=== PATIENT | male | born 1980 | race African-American/Black ===

== ENCOUNTER 2016-12-12 05:39 | Emergency (ER) | payer OTHER ==
[~2016-12-12] VITALS: Ht 177.8 cm; Wt 65.5 kg
[~2016-12-12 05:39] MED LIST: MEDROL DOSEPAK4 MG PO; PYRIDIUM200 MG PO
[2016-12-12 06:33] LABS: HEMATOCRIT 40.4 % (38.0-50.0); MCH 31.5 PG (29.0-34.0); MCHC 32.7 G/DL (30.0-36.0); MCV 96.4 FL (86-99); MEAN PLAT.VOLUME 9.5 uM^3 (9.0-12.4); PLATELET COUNT 360 K/uL (156-360); RBC DIS.WIDTH-CV 12.3 % (11.8-14.6); RBC DIS.WIDTH-SD 43.8 % (39-53); RED BLOOD COUNT 4.19 M/uL (4.00-5.50); WHITE BLOOD COUNT 9.8 K/uL (4.1-10.2)
[2016-12-12 06:43] LABS: CHLORIDE 109 mEq/L (99-109); POTASSIUM 3.5 mEq/L (3.7-5.4); SODIUM 142 mEq/L (136-147)
[2016-12-12 06:45] LABS: GLUCOSE 107 mg/dL (70-99)
[2016-12-12 06:47] LABS: ANION GAP 18 MEQ/L (2-14)
[2016-12-12 06:48] LABS: SERUM ETHYL ALCOHOL < 10 mg/dL
[2016-12-12 06:49] LABS: GFR ESTIMATE (CALCULATED) > 59 mL/min/
[2016-12-12 06:51] LABS: UREA NITROGEN (BUN) 13 mg/dL (9-23)
[2016-12-12 06:52] LABS: SALICYLATE < 5.0 MG/DL (15-30)
[2016-12-12 09:13] LABS: AMPHETAMINE NEGATIVE (500 ng/mL); BARBITURATES NEGATIVE (200 ng/mL); BENZODIAZEPINES NEGATIVE (150 ng/mL); COCAINE PRESUMPTIVE POSITIVE (150 ng/mL); INTERNAL CONTROLS VALID? YES; METHADONE NEGATIVE (200 ng/mL); METHAMPHETAMINE NEGATIVE (500 ng/mL); OPIATES (MORPHINE) NEGATIVE (100 ng/mL); OXYCODONE NEGATIVE (100 ng/mL); PHENCYCLIDINE PRESUMPTIVE POSITIVE (25 ng/mL); PROPOXYPHENE NEGATIVE (300 ng/mL); THC CANNABINOIDS PRESUMPTIVE POSITIVE (50 ng/mL); TRICYCLIC ANTIDEPRESSANTS NEGATIVE (300 ng/mL)
[2016-12-12 09:14] LABS: ADD MEDTOX COMMENT Y
[2016-12-12 10:42] VITALS: BP 135/98
== END 2016-12-12 10:44 | disposition home or self-care (01) ==
LOC: EME 05:39
PROVIDERS: Emergency Medicine
DX: F19.10 Other psychoactive substance abuse, uncomplicated (principal); F68.8 Other specified disorders of adult personality and behavior; F17.200 Nicotine dependence, unspecified, uncomplicated
CPT/HCPCS: 71010; 80048; 84999; 85027; 93005; 99281; 99285; G0480; J1630; J2250; J7030

== ENCOUNTER 2016-12-14 19:40 | Emergency (ER) | payer OTHER ==
[~2016-12-14] VITALS: Ht 170.2 cm; Wt 62.0 kg
[2016-12-14 21:48] VITALS: BP 131/99
== END 2016-12-14 21:48 | disposition home or self-care (01) ==
LOC: EME 19:40
PROC: 0HQFXZZ Repair Right Hand Skin, External Approach (ICD-10-PCS; principal; 2016-12-14)
DX: S61.216A Laceration without foreign body of right little finger without damage to nail, initial encounter (principal); W26.0XXA Contact with knife, initial encounter
CPT/HCPCS: 99281; 99283; S0020

== ENCOUNTER 2017-03-01 12:16 | Emergency (ER) | payer OTHER ==
[~2017-03-01] VITALS: Ht 172.7 cm; Wt 60.0 kg
[2017-03-01 13:01] VITALS: BP 120/81
== END 2017-03-01 13:27 | disposition left against medical advice (07) ==
LOC: EME 12:16
DX: T65.891A Toxic effect of other specified substances, accidental (unintentional), initial encounter (principal); F17.200 Nicotine dependence, unspecified, uncomplicated
CPT/HCPCS: 80053; 85027; 99281; 99283; G0480

== ENCOUNTER 2017-03-10 18:48 | Emergency (ER) | payer OTHER ==
[~2017-03-10] VITALS: Ht 170.2 cm; Wt 62.6 kg
[2017-03-10 19:53] LABS: HEMATOCRIT 36.9 % (38.0-50.0); MCH 31.5 PG (29.0-34.0); MCHC 33.1 G/DL (30.0-36.0); MCV 95.3 FL (86-99); MEAN PLAT.VOLUME 9.2 uM^3 (9.0-12.4); PLATELET COUNT 307 K/uL (156-360); RBC DIS.WIDTH-CV 12.6 % (11.8-14.6); RBC DIS.WIDTH-SD 44.1 % (39-53); RED BLOOD COUNT 3.87 M/uL (4.00-5.50); WHITE BLOOD COUNT 10.5 K/uL (4.1-10.2)
[2017-03-10 20:02] LABS: CHLORIDE 110 mEq/L (99-109); POTASSIUM 3.6 mEq/L (3.7-5.4); SODIUM 146 mEq/L (136-147)
[2017-03-10 20:04] LABS: GLUCOSE 99 mg/dL (70-99)
[2017-03-10 20:05] LABS: ANION GAP 9 MEQ/L (2-14)
[2017-03-10 20:06] LABS: TOTAL BILIRUBIN 0.5 mg/dL (0.0-1.0)
[2017-03-10 20:07] LABS: ALKALINE PHOSPHATASE 65 IU/L (3-129); SERUM ETHYL ALCOHOL < 10 mg/dL
[2017-03-10 20:08] LABS: GFR ESTIMATE (CALCULATED) > 59 mL/min/
[2017-03-10 20:09] LABS: UREA NITROGEN (BUN) 10 mg/dL (9-23)
[2017-03-10 21:05] VITALS: BP 157/110
== END 2017-03-10 21:05 | disposition home or self-care (01) ==
LOC: EME → EDBD 18:48 → EME 18:48
PROVIDERS: Emergency Medicine
PROC: 0HQ1XZZ Repair Face Skin, External Approach (ICD-10-PCS; principal; 2017-03-10)
DX: S01.111A Laceration without foreign body of right eyelid and periocular area, initial encounter (principal); S02.2XXA Fracture of nasal bones, initial encounter for closed fracture; S60.221A Contusion of right hand, initial encounter; Y00.XXXA Assault by blunt object, initial encounter; F17.200 Nicotine dependence, unspecified, uncomplicated
CPT/HCPCS: 70450; 70486; 73130; 80053; 85027; 99281; 99284; G0480

== ENCOUNTER 2017-03-27 14:56 | Emergency (ER) | payer OTHER ==
[~2017-03-27] VITALS: Ht 170.2 cm; Wt 68.1 kg
== END 2017-03-27 15:42 | disposition home or self-care (01) ==
LOC: EME 14:56
DX: S01.111D Laceration without foreign body of right eyelid and periocular area, subsequent encounter (principal); Z72.0 Tobacco use
CPT/HCPCS: 99281; 99283

== ENCOUNTER 2017-05-09 16:11 | Emergency (ER) | payer OTHER ==
[~2017-05-09] VITALS: Ht 170.2 cm; Wt 46.8 kg
[2017-05-09 17:44] LABS: BASOPHIL COUNT 0.1 K/uL (0-0.1); EOSINOPHIL (%) 0.5 % (0-5); EOSINOPHIL COUNT 0.1 K/uL (0-0.3); HEMATOCRIT 43.4 % (38.0-50.0); IMMATURE GRANULOCYTE (%) 0.3 % (0.0-0.7); LYMPHOCYTE COUNT 1.9 K/uL (1.0-2.8); MCH 31.6 PG (29.0-34.0); MCHC 33.9 G/DL (30.0-36.0); MCV 93.3 FL (86-99); MEAN PLAT.VOLUME 9.5 uM^3 (9.0-12.4); MONOCYTE COUNT 0.8 K/uL (0-0.8); NEUTROPHIL (%) 74.1 % (45-76); PLATELET COUNT 297 K/uL (156-360); RBC DIS.WIDTH-CV 12.6 % (11.8-14.6); RBC DIS.WIDTH-SD 43.7 % (39-53); RED BLOOD COUNT 4.65 M/uL (4.00-5.50); WHITE BLOOD COUNT 10.8 K/uL (4.1-10.2)
[2017-05-09 17:56] LABS: CHLORIDE 105 mEq/L (99-109); POTASSIUM 3.5 mEq/L (3.7-5.4); SODIUM 142 mEq/L (136-147)
[2017-05-09 17:58] LABS: GLUCOSE 110 mg/dL (70-99)
[2017-05-09 17:59] LABS: ANION GAP 15 MEQ/L (2-14)
[2017-05-09 18:01] LABS: SERUM ETHYL ALCOHOL < 10 mg/dL
[2017-05-09 18:02] LABS: GFR ESTIMATE (CALCULATED) > 59 mL/min/
[2017-05-09 18:03] LABS: UREA NITROGEN (BUN) 16 mg/dL (9-23)
[2017-05-09 18:47] LABS: AMPHETAMINE NEGATIVE (500 ng/mL); BARBITURATES NEGATIVE (200 ng/mL); BENZODIAZEPINES NEGATIVE (150 ng/mL); COCAINE PRESUMPTIVE POSITIVE (150 ng/mL); INTERNAL CONTROLS VALID? YES; METHADONE NEGATIVE (200 ng/mL); METHAMPHETAMINE NEGATIVE (500 ng/mL); OPIATES (MORPHINE) NEGATIVE (100 ng/mL); OXYCODONE NEGATIVE (100 ng/mL); PHENCYCLIDINE PRESUMPTIVE POSITIVE (25 ng/mL); PROPOXYPHENE NEGATIVE (300 ng/mL); THC CANNABINOIDS PRESUMPTIVE POSITIVE (50 ng/mL); TRICYCLIC ANTIDEPRESSANTS NEGATIVE (300 ng/mL)
[2017-05-09 18:48] LABS: ADD MEDTOX COMMENT Y
[2017-05-09 19:24] VITALS: BP 118/84
[2017-05-09 20:12] LABS: TROP-I INTERPRETATION NEGATIVE; TROPONIN-I < 0.01 ng/mL (0.0-0.30)
== END 2017-05-09 19:25 | disposition home or self-care (01) ==
LOC: EME 16:11
PROVIDERS: Emergency Medicine
DX: F12.10 Cannabis abuse, uncomplicated (principal); F14.10 Cocaine abuse, uncomplicated; F17.200 Nicotine dependence, unspecified, uncomplicated; Z59.0 Homelessness
CPT/HCPCS: 80048; 84484; 84999; 85025; 93005; 99281; 99283; G0480

== ENCOUNTER 2017-05-09 22:09 | Emergency (ER) | payer OTHER ==
[~2017-05-09] VITALS: Ht 170.2 cm; Wt 65.9 kg
[2017-05-10 00:13] LABS: TROP-I INTERPRETATION NEGATIVE; TROPONIN-I < 0.01 ng/mL (0.0-0.30)
[2017-05-10 01:06] VITALS: BP 127/94
== END 2017-05-10 01:06 | disposition home or self-care (01) ==
LOC: EME 22:09
PROVIDERS: Emergency Medicine
DX: R55 Syncope and collapse (principal); F12.10 Cannabis abuse, uncomplicated; F16.10 Hallucinogen abuse, uncomplicated; F14.10 Cocaine abuse, uncomplicated; R00.1 Bradycardia, unspecified; F17.200 Nicotine dependence, unspecified, uncomplicated
CPT/HCPCS: 84484; 99281; 99283

== ENCOUNTER 2017-05-18 17:58 | Emergency (ER) | payer OTHER | END 2017-05-18 18:09 | disposition left against medical advice (07) | LOC: EME 17:58 | DX: M54.9 Dorsalgia, unspecified (principal); Z53.21 Procedure and treatment not carried out due to patient leaving prior to being seen by health care provider ==

== ENCOUNTER 2017-08-13 18:54 | Emergency (ER) | payer OTHER ==
[~2017-08-13] VITALS: Ht 170.2 cm; Wt 74.8 kg
[2017-08-13 19:37] VITALS: BP 166/98
== END 2017-08-13 19:41 | disposition home or self-care (01) ==
LOC: EME 18:54
DX: F19.129 Other psychoactive substance abuse with intoxication, unspecified (principal); F17.200 Nicotine dependence, unspecified, uncomplicated
CPT/HCPCS: 99281; 99283

== ENCOUNTER 2017-12-23 05:11 | Emergency (ER) | payer OTHER ==
[~2017-12-23] VITALS: Ht 172.7 cm; Wt 67.7 kg
[2017-12-23 06:40] VITALS: BP 126/97
== END 2017-12-23 06:53 | disposition home or self-care (01) ==
LOC: EME → EDBD 05:11 → EME 06:53
DX: S80.811A Abrasion, right lower leg, initial encounter (principal); S40.211A Abrasion of right shoulder, initial encounter; S20.319A Abrasion of unspecified front wall of thorax, initial encounter; S80.812A Abrasion, left lower leg, initial encounter; Y09 Assault by unspecified means; F17.200 Nicotine dependence, unspecified, uncomplicated
CPT/HCPCS: 99281; 99283

== ENCOUNTER 2018-01-16 03:10 | Emergency (ER) | payer OTHER ==
[~2018-01-16] VITALS: Ht 177.8 cm; Wt 66.2 kg
[2018-01-16 06:20] LABS: BASOPHIL (%) 0.6 % (0-1); BASOPHIL COUNT 0.1 K/uL (0-0.1); EOSINOPHIL (%) 1.9 % (0-5); EOSINOPHIL COUNT 0.2 K/uL (0-0.3); HEMATOCRIT 37.1 % (38.0-50.0); HEMOGLOBIN 12.2 G/DL (12.5-16.6); IMMATURE GRANULOCYTE (%) 0.2 % (0.0-0.7); LYMPHOCYTE (%) 23.2 % (15-42); LYMPHOCYTE COUNT 1.9 K/uL (1.0-2.8); MCH 31.6 PG (29.0-34.0); MCHC 32.9 G/DL (30.0-36.0); MCV 96.1 FL (86-99); MONOCYTE (%) 4.7 % (3-12); MONOCYTE COUNT 0.4 K/uL (0-0.8); NEUTROPHIL (%) 69.4 % (45-76); NEUTROPHIL COUNT 5.8 K/uL (1.8-6.4); PLATELET COUNT 334 K/uL (156-360); RBC DIS.WIDTH-CV 13.5 % (11.8-14.6); RBC DIS.WIDTH-SD 47.8 % (39-53); RED BLOOD COUNT 3.86 M/uL (4.00-5.50); WHITE BLOOD COUNT 8.4 K/uL (4.1-10.2)
[2018-01-16 06:26] LABS: INTER. NORMALIZED RATIO 1.1
[2018-01-16 06:29] LABS: PTT 29.9 SEC (25-37)
[2018-01-16 06:31] LABS: CHLORIDE 107 mEq/L (99-109); POTASSIUM 3.6 mEq/L (3.7-5.4); SODIUM 142 mEq/L (136-147)
[2018-01-16 06:34] LABS: GLUCOSE 107 mg/dL (70-99); TOTAL PROTEIN 6.8 g/dL (6.4-8.3)
[2018-01-16 06:35] LABS: TOTAL BILIRUBIN 0.5 mg/dL (0.0-1.0)
[2018-01-16 06:37] LABS: CREATININE 0.9 mg/dL (0.6-1.3); GFR ESTIMATE (CALCULATED) > 59 mL/min/ (58.99-99999); SERUM ETHYL ALCOHOL < 10 mg/dL
[2018-01-16 06:38] LABS: ALKALINE PHOSPHATASE 70 IU/L (3-129)
[2018-01-16 06:39] LABS: AST (GOT) 20 IU/L (2-34); DIRECT BILIRUBIN 0.2 mg/dL (0.0-0.3); UREA NITROGEN (BUN) 9 mg/dL (9-23)
[2018-01-16 06:41] LABS: ACETAMINOPHEN (TYLENOL) < 10 mcg/mL (10-30); ALT (GPT) 17 IU/L (3-49); SALICYLATE < 5.0 MG/DL (15-30)
[2018-01-16 06:42] LABS: LIPASE 23 U/L (1.0-51.0)
[2018-01-16 07:56] VITALS: BP 112/87
== END 2018-01-16 07:59 | disposition home or self-care (01) ==
LOC: EME → EDBD 03:10 → EME 07:59
PROVIDERS: Emergency Medicine
DX: R41.82 Altered mental status, unspecified (principal); Z87.898 Personal history of other specified conditions; F17.200 Nicotine dependence, unspecified, uncomplicated
CPT/HCPCS: 70450; 80048; 80076; 81003; 83690; 85025; 85610; 85730; 99281; 99284; G0480; J1630

== ENCOUNTER 2018-01-16 16:30 | Emergency (ER) | payer OTHER ==
[~2018-01-16] VITALS: Ht 170.2 cm; Wt 64.6 kg
[2018-01-16 17:15] LABS: HEMATOCRIT 39.1 % (38.0-50.0); HEMOGLOBIN 12.8 G/DL (12.5-16.6); MCH 31.3 PG (29.0-34.0); MCHC 32.7 G/DL (30.0-36.0); MCV 95.6 FL (86-99); PLATELET COUNT 376 K/uL (156-360); RBC DIS.WIDTH-CV 13.3 % (11.8-14.6); RBC DIS.WIDTH-SD 47.5 % (39-53); RED BLOOD COUNT 4.09 M/uL (4.00-5.50); WHITE BLOOD COUNT 10.4 K/uL (4.1-10.2)
[2018-01-16 17:21] LABS: CHLORIDE 106 mEq/L (99-109); POTASSIUM 3.7 mEq/L (3.7-5.4); SODIUM 144 mEq/L (136-147)
[2018-01-16 17:26] LABS: ALBUMIN 4.4 g/dL (3.2-4.8)
[2018-01-16 17:28] LABS: GLUCOSE 147 mg/dL (70-99); TOTAL PROTEIN 7.4 g/dL (6.4-8.3)
[2018-01-16 17:30] LABS: TOTAL BILIRUBIN 0.6 mg/dL (0.0-1.0)
[2018-01-16 17:31] LABS: SERUM ETHYL ALCOHOL < 10 mg/dL
[2018-01-16 17:32] LABS: ALKALINE PHOSPHATASE 76 IU/L (3-129); GFR ESTIMATE (CALCULATED) > 59 mL/min/ (58.99-99999)
[2018-01-16 17:33] LABS: AST (GOT) 27 IU/L (2-34); CREATININE 1.4 mg/dL (0.6-1.3); UREA NITROGEN (BUN) 9 mg/dL (9-23)
[2018-01-16 17:35] LABS: ALT (GPT) 18 IU/L (3-49)
[2018-01-16 20:32] LABS: APPEARANCE CLEAR ((CLEAR)); BILIRUBIN NEGATIVE; BLOOD MODERATE; COLOR YELLOW ((YELLOW)); GLUCOSE (STRIP) NEGATIVE; KETONES NEGATIVE; LEUKOCYTES NEGATIVE; NITRITE NEGATIVE; PROTEIN (STRIP) 30; SPECIFIC GRAVITY 1.009 (1.000-1.030); UROBILINOGEN 0.2 MG/DL (0.2-1.0)
[2018-01-16 20:41] LABS: AMPHETAMINE NEGATIVE (500 ng/mL); BACTERIA NONE SEEN /HPF; BARBITURATES NEGATIVE (200 ng/mL); BENZODIAZEPINES NEGATIVE (150 ng/mL); BUPRENORPHINE NEGATIVE (10 ng/mL); COCAINE PRESUMPTIVE POSITIVE (150 ng/mL); EPITHELIAL CELLS RARE /HPF; METHADONE NEGATIVE (200 ng/mL); METHAMPHETAMINE NEGATIVE (500 ng/mL); MUCUS TRACE /LPF; OPIATES (MORPHINE) NEGATIVE (100 ng/mL); OXYCODONE NEGATIVE (100 ng/mL); PHENCYCLIDINE PRESUMPTIVE POSITIVE (25 ng/mL); PROPOXYPHENE NEGATIVE (300 ng/mL); RED BLOOD CELLS 0-5 /HPF (0-5); THC CANNABINOIDS PRESUMPTIVE POSITIVE (50 ng/mL); TRICYCLIC ANTIDEPRESSANTS NEGATIVE (300 ng/mL); WHITE BLOOD CELLS 0-5 /HPF (0-5)
[2018-01-17 07:00] VITALS: BP 128/81
== END 2018-01-17 07:03 | disposition home or self-care (01) ==
LOC: EME 16:30
PROVIDERS: Emergency Medicine
PROC: 0HQ1XZZ Repair Face Skin, External Approach (ICD-10-PCS; principal; 2018-01-16)
DX: S01.81XA Laceration without foreign body of other part of head, initial encounter (principal); F12.10 Cannabis abuse, uncomplicated; F14.10 Cocaine abuse, uncomplicated; F16.10 Hallucinogen abuse, uncomplicated; Y04.0XXA Assault by unarmed brawl or fight, initial encounter; F17.200 Nicotine dependence, unspecified, uncomplicated
CPT/HCPCS: 70450; 70486; 80053; 81003; 84999; 85027; 93005; 99281; 99285; G0480; J2060; J7030

== ENCOUNTER 2018-02-08 00:35 | Emergency (ER) | payer OTHER ==
[~2018-02-08] VITALS: Ht 170.2 cm; Wt 77.7 kg
[2018-02-08 04:44] VITALS: BP 128/81
== END 2018-02-08 04:44 | disposition home or self-care (01) ==
LOC: EME 00:35
DX: T50.991A Poisoning by other drugs, medicaments and biological substances, accidental (unintentional), initial encounter (principal); F17.200 Nicotine dependence, unspecified, uncomplicated
CPT/HCPCS: 99281; 99284

== ENCOUNTER 2018-02-15 10:03 | Emergency (ER) | payer OTHER ==
[~2018-02-15] VITALS: Ht 182.9 cm; Wt 73.6 kg
[2018-02-15 10:32] VITALS: BP 144/95
== END 2018-02-16 06:10 | disposition left against medical advice (07) ==
LOC: EME 10:03
DX: T40.601A Poisoning by unspecified narcotics, accidental (unintentional), initial encounter (principal); Z53.20 Procedure and treatment not carried out because of patient's decision for unspecified reasons

== ENCOUNTER 2018-02-15 19:21 | Emergency (ER) | payer OTHER ==
[2018-02-15 20:58] LABS: HEMATOCRIT 42.2 % (38.0-50.0); HEMOGLOBIN 13.8 G/DL (12.5-16.6); MCH 31.6 PG (29.0-34.0); MCHC 32.7 G/DL (30.0-36.0); MCV 96.6 FL (86-99); PLATELET COUNT 366 K/uL (156-360); RBC DIS.WIDTH-CV 12.5 % (11.8-14.6); RBC DIS.WIDTH-SD 44.6 % (39-53); RED BLOOD COUNT 4.37 M/uL (4.00-5.50); WHITE BLOOD COUNT 12.7 K/uL (4.1-10.2)
[2018-02-15 21:06] LABS: ALBUMIN 4.6 g/dL (3.2-4.8); CHLORIDE 107 mEq/L (99-109); POTASSIUM 4.3 mEq/L (3.7-5.4); SODIUM 141 mEq/L (136-147)
[2018-02-15 21:08] LABS: GLUCOSE 103 mg/dL (70-99)
[2018-02-15 21:09] LABS: TOTAL PROTEIN 8.1 g/dL (6.4-8.3)
[2018-02-15 21:10] LABS: TOTAL BILIRUBIN 0.6 mg/dL (0.0-1.0)
[2018-02-15 21:11] LABS: SERUM ETHYL ALCOHOL < 10 mg/dL
[2018-02-15 21:12] LABS: CREATININE 1.2 mg/dL (0.6-1.3)
[2018-02-15 21:13] LABS: ALKALINE PHOSPHATASE 78 IU/L (3-129)
[2018-02-15 21:14] LABS: AST (GOT) 17 IU/L (2-34); UREA NITROGEN (BUN) 18 mg/dL (9-23)
[2018-02-15 21:15] LABS: SALICYLATE < 5.0 MG/DL (15-30)
[2018-02-15 21:16] LABS: ACETAMINOPHEN (TYLENOL) < 10 mcg/mL (10-30); ALT (GPT) 12 IU/L (3-49); GFR ESTIMATE (CALCULATED) > 59 mL/min/ (58.99-99999)
[2018-02-15 22:02] LABS: CREATINE KINASE 200 IU/L (1-294)
[2018-02-15 22:35] LABS: APPEARANCE CLEAR ((CLEAR)); BILIRUBIN NEGATIVE; BLOOD NEGATIVE; COLOR YELLOW ((YELLOW)); GLUCOSE (STRIP) NEGATIVE; KETONES NEGATIVE; LEUKOCYTES NEGATIVE; NITRITE NEGATIVE; PROTEIN (STRIP) 30; UROBILINOGEN 0.2 MG/DL (0.2-1.0)
[2018-02-15 22:43] LABS: AMPHETAMINE NEGATIVE (500 ng/mL); BARBITURATES NEGATIVE (200 ng/mL); BENZODIAZEPINES NEGATIVE (150 ng/mL); BUPRENORPHINE NEGATIVE (10 ng/mL); COCAINE NEGATIVE (150 ng/mL); METHADONE NEGATIVE (200 ng/mL); METHAMPHETAMINE NEGATIVE (500 ng/mL); OPIATES (MORPHINE) PRESUMPTIVE POSITIVE (100 ng/mL); OXYCODONE NEGATIVE (100 ng/mL); PHENCYCLIDINE PRESUMPTIVE POSITIVE (25 ng/mL); PROPOXYPHENE NEGATIVE (300 ng/mL); THC CANNABINOIDS PRESUMPTIVE POSITIVE (50 ng/mL); TRICYCLIC ANTIDEPRESSANTS NEGATIVE (300 ng/mL)
[2018-02-16 06:15] VITALS: BP 121/104
== END 2018-02-16 06:15 | disposition home or self-care (01) ==
LOC: EME 19:21 → EDBD 19:21 → EME 19:21
PROVIDERS: Emergency Medicine
DX: F16.129 Hallucinogen abuse with intoxication, unspecified (principal); F11.10 Opioid abuse, uncomplicated; R45.1 Restlessness and agitation; F16.159 Hallucinogen abuse with hallucinogen-induced psychotic disorder, unspecified; F17.200 Nicotine dependence, unspecified, uncomplicated
CPT/HCPCS: 71045; 80053; 81003; 82550; 84999; 85027; 93005; G0480; J2060; J7030